=== PATIENT | male | born 1970 | race American Indian/Alaskan Native ===

== ENCOUNTER 2017-12-01 07:58 | Emergency (ER) | payer OTHER ==
[2017-12-01 08:33] VITALS: BP 143/95
--- NOTE | 2017-12-01 08:54 | XRay Report ---
LEFT FOOT, 3 views: History: left foot pain and edema. The bony architecture is intact. Bony alignment is normal. No soft tissue abnormalities are seen. The joint spaces appear preserved. IMPRESSION: Normal left foot.
== END 2017-12-01 09:00 | disposition left against medical advice (07) ==
LOC: ED 07:58
DX: M79.673 Pain in unspecified foot (principal); Z53.21 Procedure and treatment not carried out due to patient leaving prior to being seen by health care provider
CPT/HCPCS: 82962